=== PATIENT | female | born 1970 | race American Indian/Alaskan Native ===

== ENCOUNTER 2017-01-23 11:35 | Emergency (ER) | payer BC ==
[2017-01-23] MEDS ORDERED: XARELTO PO ONE (18:03)
--- NOTE | 2017-01-23 18:10 | Emergency Department Report ---
ED General Adult HPI - General Chief complaint: Extremity Injury, Lower Stated complaint: LEFT FOOT AND LEG PAIN,SWELLING Time Seen by Provider: 01/23/17 17:58 Source: patient Mode of arrival: Ambulatory Limitations: No Limitations - History of Present Illness Initial comments: Patient is 46 years old female history of left lower extremity DVT in 2012. She presented to the ER today with 7 day history of left lower extremity swelling and pain. She denied any chest pain or shortness of breath. No other symptoms. - Related Data Allergies Allergy/AdvReac Type Severity Reaction Status Date / Time No Known Allergies Allergy Verified 01/23/17 11:42 ED Review of Systems ROS: Stated complaint: LEFT FOOT AND LEG PAIN,SWELLING Other details as noted in HPI Comment: All other systems reviewed and negative Constitutional: denies: chills, fever ENT: denies: throat pain, dental pain Cardiovascular: denies: chest pain, palpitations, dyspnea on exertion Gastrointestinal: denies: abdominal pain, nausea, vomiting, diarrhea, constipation Genitourinary: denies: urgency, dysuria Musculoskeletal: denies: back pain Neurological: denies: headache, weakness, numbness, paresthesias ED Past Medical Hx - Past Medical History Hx Deep Vein Thrombosis: Yes Additional medical history: DVT - Surgical History Hx Cholecystectomy: Yes - Social History Smoking Status: Never Smoker Substance Use Type: None ED Physical Exam - General Limitations: No Limitations General appearance: alert, in no apparent distress - Head Head exam: Present: atraumatic, normocephalic, normal inspection - Eye Eye exam: Present: normal appearance, PERRL - ENT ENT exam: Present: normal exam, mucous membranes moist - Neck Neck exam: Present: normal inspection, full ROM. Absent: tenderness, meningismus - Respiratory Respiratory exam: Present: normal lung sounds bilaterally. Absent: respiratory distress, wheezes, rales, rhonchi, stridor, chest wall tenderness, accessory muscle use, decreased breath sounds, prolonged expiratory - Cardiovascular Cardiovascular Exam: Present: regular rate, normal rhythm, normal heart sounds - GI/Abdominal GI/Abdominal exam: Present: soft, normal bowel sounds. Absent: distended, tenderness, guarding, rebound, rigid, organomegaly, mass, bruit, pulsatile mass , hernia - Extremities Exam Extremities exam: Present: normal inspection, calf tenderness, other (left leg swelling, no erythema, good peripheral pulses.) - Back Exam Back exam: Present: normal inspection. Absent: tenderness, CVA tenderness (R), CVA tenderness (L) - Neurological Exam Neurological exam: Present: alert, oriented X3, CN II-XII intact, normal gait - Skin Skin exam: Present: warm ED Course Vital Signs 01/23/17 01/23/17 01/23/17 11:42 16:33 17:00 Temperature 97.8 F Pulse Rate 88 84 78 Respiratory 20 16 7 L Rate Blood Pressure 140/69 128/92 Blood Pressure 136/76 [Left] O2 Sat by Pulse 98 96 100 Oximetry 01/23/17 01/23/17 01/23/17 17:30 18:01 18:30 Temperature Pulse Rate 77 67 72 Respiratory 10 L 11 L 15 Rate Blood Pressure 117/65 135/76 134/76 Blood Pressure [Left] O2 Sat by Pulse 99 100 100 Oximetry 01/23/17 01/23/17 01/23/17 19:00 19:30 20:01 Temperature Pulse Rate 75 70 69 Respiratory 24 25 H 20 Rate Blood Pressure 126/66 133/82 152/102 Blood Pressure [Left] O2 Sat by Pulse 100 100 100 Oximetry 01/23/17 20:31 Temperature Pulse Rate 70 Respiratory 23 Rate Blood Pressure 158/111 Blood Pressure [Left] O2 Sat by Pulse 98 Oximetry - Reevaluation(s) Reevaluation #1: 01/23/17 18:09 Patient receives Xarelto 20 MG BY MOUTH, I WOULD OBSERVE IN THE ER FOR 2 HOURS AFTER THE MEDICATION, discharged after that to follow-up with her primary care physician I provided with a prescription for Xarelto. Reevaluation #2: 01/23/17 21:10 Patient observed in the ER more than 2 hours after she received xarelto. ED Medical Decision Making - Radiology Data Radiology results: report reviewed LLE VENOUS DUPLEX COMPLETED. VAS LAB PRELIMINARY REPORT; NON-OCCL ACUTE DVT NOTED IN LT. CFV. CHRONIC/ RECANALIZED DVT NOTED IN LT. SFV, POP V . ACUTE SVT NOTED IN LT. SMALLER SAPH VEIN (CALF). PHYSICIANS REPORT TO FOLLOW...(RSK) Critical care attestation.: If time is entered above; I have spent that time in minutes in the direct care of this critically ill patient, excluding procedure time. ED Disposition Clinical Impression: Left leg DVT Disposition: DC-01 TO HOME OR SELFCARE Is pt being admited?: No Condition: Stable Instructions: Deep Venous Thrombosis (ED) Referrals: KRIS LAL MD [Staff Physician] - 3-5 Days
[2017-01-23 21:20] VITALS: BP 129/79
--- NOTE | 2017-01-24 08:02 | Vascular Lab Report ---
Left Lower Extremity Venous Duplex Study: Reason for Exam: Pain of the left lower extremity. Comments on the Right: A limited duplex study was done of the proximal veins of the right lower extremity. All veins visualized are freely compressible without evidence of internal echogenicity. Flow is spontaneous and phasic throughout. No evidence of acute or chronic thrombus is seen in any of the vessels visualized. Comments on the Left: Venous thrombosis is noted in the popliteal femoral and common femoral veins as well as small saphenous vein. The remaining veins visualized are freely compressible without evidence of internal echogenicity. Spontaneous and phasic flow is present proximally. Impression: Deep venous thrombosis in the left lower extremity. Superficial venous thrombosis in the left lower extremity.
== END 2017-01-23 21:20 | disposition home or self-care (01) ==
LOC: ED 11:35
DX: I82.4Z2 Acute embolism and thrombosis of unspecified deep veins of left distal lower extremity (principal)

== ENCOUNTER 2018-12-14 20:05 | Inpatient (IN) | payer BC, OTHER ==
--- NOTE | 2018-12-14 20:13 | Event Note ---
ED Screening Note ED Screening Note: SOB that began at 12 PM no CP no cough no fever no LE edema PMHx DVT/PE last one was in 2017 no IVC filter only low dose aspirin no recent travel, no recent surgery, no control, no hormones This initial assessment/diagnostic orders/clinical plan/treatment(s) is/are subject to change based on patients health status, clinical progression and re- assessment by fellow clinical providers in the ED. Further treatment and workup at subsequent clinical providers discretion. Patient/guardian urged not to elope from the ED as their condition may be serious if not clinically assessed and managed. Initial orders include: labs
[2018-12-14 21:06] LABS: Basophils # (Auto) 0.1 K/mm3 (0.0-0.1); Eosinophils % (Auto) 0.3 % (0.0-4.3); Hematocrit 36.4 % (30.3-42.9); Hemoglobin 11.5 gm/dl (10.1-14.3); Lymphocytes # (Auto) 1.6 K/mm3 (1.2-5.4); Lymphocytes % (Auto) 26.1 % (13.4-35.0); Mean Corpuscular HGB Conc 32 % (30-34); Mean Corpuscular Volume 78 fl (79-97); Monocytes # (Auto) 0.5 K/mm3 (0.0-0.8); Monocytes % (Auto) 8.2 % (0.0-7.3); Platelet Count 155 K/mm3 (140-440); Red Blood Count 4.67 M/mm3 (3.65-5.03); Red Cell Distribution Width 17.3 % (13.2-15.2)
[2018-12-14 21:18] LABS: INR 0.98 (0.87-1.13)
[2018-12-14 21:19] LABS: Partial Thromboplastin Time 27.2 Sec. (24.2-36.6)
[2018-12-14 21:24] LABS: Alanine Aminotransferase 16 units/L (7-56); Albumin 4.4 g/dL (3.9-5); BUN/Creatinine Ratio 16; Blood Urea Nitrogen 11 mg/dL (7-17); Hemolysis Index 8
[2018-12-14] MEDS ORDERED: HEPARIN 10,000 UNITS/10 ML VIAL IV ONE (22:17)
--- NOTE | 2018-12-14 22:27 | Emergency Department Report ---
ED Shortness of Breath HPI - General Chief Complaint: Dyspnea/Respdistress Stated Complaint: SOB Time Seen by Provider: 12/14/18 20:11 Source: patient Mode of arrival: Ambulatory Limitations: No Limitations - History of Present Illness Initial Comments: Patient is 48-year-old female with history of DVT and pulmonary embolism in 2017. Patient presented to the ER complaining of sudden onset of shortness of breath started this afternoon. Patient stated that she was going to get her male when all of a sudden she started having shortness of breath and chest pain, tightness with palpitation. Patient stated that she was taking Xorelto but because of insurance issues she is unable to buy her medication and she is only taking any aspirin. Patient denied any fever or chills. No cough. MD Complaint: shortness of breath -: Sudden Consistency: constant - Related Data Previous Rx's Medication Instructions Recorded Last Taken Type Apixaban [Eliquis] 5 mg PO BID 30 Days tablet 12/17/18 Unknown Rx HYDROcodone/APAP 5-325 [[place] 2 each PO Q6H PRN #14 tablet 12/17/18 Unknown Rx 5-325 mg TAB] Allergies Allergy/AdvReac Type Severity Reaction Status Date / Time No Known Allergies Allergy Verified 01/23/17 11:42 ED Review of Systems ROS: Stated complaint: SOB Other details as noted in HPI Comment: All other systems reviewed and negative Constitutional: denies: chills, fever Respiratory: shortness of breath, SOB with exertion, SOB at rest. denies: cough, wheezing Cardiovascular: chest pain, palpitations, dyspnea on exertion Gastrointestinal: denies: abdominal pain, nausea, vomiting Musculoskeletal: denies: back pain Neurological: denies: headache, weakness ED Past Medical Hx - Past Medical History Hx Deep Vein Thrombosis: Yes Hx Pulmonary Embolism: Yes (x1) Additional medical history: DVT x4 - Surgical History Hx Cholecystectomy: Yes - Social History Smoking Status: Never Smoker Substance Use Type: None - Medications Home Medications: Home Medications Medication Instructions Recorded Confirmed Last Taken Type Apixaban [Eliquis] 5 mg PO BID 30 Days tablet 12/17/18 Unknown Rx HYDROcodone/APAP 5-325 [[place] 2 each PO Q6H PRN #14 tablet 12/17/18 Unknown Rx 5-325 mg TAB] ED Physical Exam - General Limitations: No Limitations General appearance: alert, in no apparent distress, anxious - Head Head exam: Present: atraumatic, normocephalic, normal inspection - Eye Eye exam: Present: normal appearance - ENT ENT exam: Present: normal exam, normal orophraynx, mucous membranes moist - Neck Neck exam: Present: normal inspection, full ROM. Absent: tenderness, meningismus, lymphadenopathy, thyromegaly - Respiratory Respiratory exam: Present: normal lung sounds bilaterally - Cardiovascular Cardiovascular Exam: Present: regular rate, tachycardia, normal heart sounds - GI/Abdominal GI/Abdominal exam: Present: soft, normal bowel sounds. Absent: distended, tenderness, guarding, rebound, rigid, organomegaly, mass, bruit, pulsatile mass, hernia - Extremities Exam Extremities exam: Present: normal inspection, full ROM, normal capillary refill. Absent: calf tenderness - Back Exam Back exam: Present: normal inspection, full ROM. Absent: CVA tenderness (R), CVA tenderness (L) - Neurological Exam Neurological exam: Present: alert, oriented X3, CN II-XII intact - Skin Skin exam: Present: warm, intact, normal color ED Course Vital Signs 12/14/18 12/14/18 12/14/18 20:09 20:10 20:12 Temperature 98.3 F 98.3 F 98.3 F Pulse Rate 128 H 128 H 96 H Respiratory 18 20 18 Rate Blood Pressure 146/108 146/108 Blood Pressure 146/108 [Right] O2 Sat by Pulse 96 96 128 H Oximetry 12/14/18 12/14/18 12/14/18 21:51 21:59 22:10 Temperature 98.5 F Pulse Rate 115 H 119 H Respiratory 21 16 Rate Blood Pressure 129/90 Blood Pressure 129/90 [Right] O2 Sat by Pulse 94 98 88 Oximetry 12/14/18 12/14/18 12/14/18 22:16 22:30 22:46 Temperature Pulse Rate 114 H 116 H 115 H Respiratory 27 H 34 H 33 H Rate Blood Pressure 106/85 129/90 129/90 Blood Pressure [Right] O2 Sat by Pulse 96 96 99 Oximetry 12/14/18 12/14/18 12/14/18 23:00 23:16 23:30 Temperature Pulse Rate 115 H 111 H 110 H Respiratory 35 H 33 H 32 H Rate Blood Pressure 111/68 111/68 111/68 Blood Pressure [Right] O2 Sat by Pulse 58 L 98 95 Oximetry 12/14/18 12/14/18 23:38 23:40 Temperature Pulse Rate 109 H 112 H Respiratory 22 32 H Rate Blood Pressure 111/68 111/68 Blood Pressure [Right] O2 Sat by Pulse 98 97 Oximetry ED Medical Decision Making - Lab Data Result diagrams: 12/17/18 04:08 12/17/18 04:08 - Radiology Data Radiology results: report reviewed - Medical Decision Making Patient is 48-year-old female with history of DVT and pulmonary embolism in 2017. Patient presented to the ER complaining of sudden onset of shortness of breath started this afternoon. Patient stated that she was going to get her male when all of a sudden she started having shortness of breath and chest pain, tightness with palpitation. Patient stated that she was taking Xorelto but because of insurance issues she is unable to buy her medication and she is only taking any aspirin. Patient denied any fever or chills. No cough. Given patient had a previous history of DVT and pulmonary embolism and I can't presentation which is consistent stent with pulmonary embolism. Patient started on heparin drip. CTA chest show a large right main pulmonary artery embolism. I discussed the patient with Dr. Arnie Canales, vascular surgeon for [facility]. Dr. Canales is taking patient to the Emergency Room Rn for thrombectomy. I discussed the patient was Dr. Santiago, he agreed to admit the patient to medical service for further management. Critical Care Time: Yes Critical care time in (mins) excluding proc time.: 30 Critical care attestation.: If time is entered above; I have spent that time in minutes in the direct care of this critically ill patient, excluding procedure time. ED Disposition Clinical Impression: Pulmonary embolism Disposition: DC-09 OP ADMIT IP TO THIS HOSP Is pt being admited?: Yes Condition: Stable
--- NOTE | 2018-12-14 22:56 | Cat Scan Report ---
CTA CHEST WITH IV CONTRAST INDICATION: SOB, elevated d-dimer, hx of PE CONTRAST: 100 cc Omnipaque 350 IV COMPARISON: None available. Three-plane MIP reconstructions were produced. All CT scans at this location are performed using CT d ose reduction for ALARA by means of automated exposure control. NOTE: Resolution is decreased and artifact is introduced by the patient's size. FINDINGS: Lung brown are clear. No significant axillary or chest wall abnormalities are seen. No med iastinal or hilar masses are noted. Visualized portions of the upper abdomen show no acute abnormalit ies. Fatty infiltration of the liver is seen. The aorta shows no aneurysmal dilatation or evidence of dissection. Good opacification of the pulmonary arterial system was achieved. A large PTE is seen in the distal r ight pulmonary artery extending into multiple mid level branches with extensive PTE noted in the righ t lower lobe as an extension of this process and small amounts extending into the right upper and mid dle lobe mid level branches. No PTE is obvious on the left. The right ventricle is mildly prominent as is the inferior vena cava. Mild reflux of contrast into th e hepatic veins is seen. IMPRESSION: Large right-sided PTE with evidence of right heart strain CRITICAL RESULT: Time of Discovery: 2144 Time of Communication: 2148 Licensed Practitioner Receiving Report: Dr. Reynolds Read Back Performed: not pertinent Signer Name: Lake Rogers MD Signed: 12/14/2018 10:51 PM Workstation Name: [id number]
[2018-12-14] MEDS ORDERED: HEPARIN/ 0.45% NACL DRIP 25,000 UNIT/500 ML BAG IV SCH (23:00)
[2018-12-14 23:34] LABS: Hematocrit 36.3 % (30.3-42.9); Hemoglobin 11.3 gm/dl (10.1-14.3)
[2018-12-14 23:40] LABS: INR TNR (0.87-1.13); Partial Thromboplastin Time TNR Sec. (24.2-36.6)
[2018-12-14] MEDS ORDERED: MIDAZOLAM 2 MG/2 ML INJ ONE (23:40)
[2018-12-14] MEDS ORDERED: fentaNYL 100 MCG/2 ML INJ ONE (23:41)
[2018-12-14] MEDS ORDERED: SODIUM CHLORIDE 0.9% 1000 ML 1,000 ML ONE (23:43)
[2018-12-14] MEDS ORDERED: LIDOCAINE (2%) 20 MG/1 ML VIAL 20 ML MDV INFILTRATI ONE (23:43)
[2018-12-14] MEDS ORDERED: HEPARIN/NS 5000 UNIT/500ML 1,000 ML IR ONE (23:43)
[2018-12-14] MEDS ORDERED: WATER FOR INJ Sterile (PF) 10 ML ONE (23:43)
[2018-12-14] MEDS ORDERED: HEPARIN 10,000 UNITS/10 ML VIAL ONE (23:43)
[2018-12-14] MEDS ORDERED: HEPARIN/ 0.45% NACL DRIP 25,000 UNIT/500 ML BAG ONE (23:43)
[2018-12-14] MEDS ORDERED: MORPHINE 2 MG/1 ML INJ IV PRN (23:44)
[2018-12-14] MEDS ORDERED: ALTEPLASE 2 MG INJ ONE (23:44)
[2018-12-14] MEDS ORDERED: ONDANSETRON 4 MG/2 ML INJ IV PRN (23:44)
[2018-12-14] MEDS ORDERED: ACETAMINOPHEN 650 MG RECT SUPP PR PRN (23:45)
[2018-12-15] MEDS ORDERED: ONDANSETRON 4 MG/2 ML INJ IV PRN
[2018-12-15] MEDS ORDERED: MORPHINE 2 MG/1 ML INJ IV PRN
[2018-12-15] MEDS ORDERED: ALTEPLASE 20 MG in SODIUM CHLORIDE 0.9% 500 ML 500 ML EKOSDLUMEN SCH
[2018-12-15] MEDS ORDERED: SODIUM CHLORIDE 0.9% 1000 ML 1,000 ML SHEATH SCH
[2018-12-15] MEDS ORDERED: MORPHINE 4 MG/1 ML INJ IV PRN
[2018-12-15] MEDS ORDERED: SODIUM CHLORIDE 0.9% 1000 ML 1,000 ML IV SCH
[2018-12-15] MEDS ORDERED: HEPARIN/ 0.45% NACL DRIP 25,000 UNIT/500 ML BAG SHEATH SCH
[2018-12-15] MEDS ORDERED: SODIUM CHLORIDE 0.9% 1000 ML 1,000 ML EKOSCLUMEN SCH
[2018-12-15] MEDS ORDERED: HYDROcodone/ACETAMINOPHEN 5-325 MG TAB PO PRN
[2018-12-15 00:36] LABS: INR 1.13 (0.87-1.13)
[2018-12-15] MEDS ORDERED: HEPARIN 10,000 UNITS/10 ML VIAL ONE ×2 (00:36→12:18)
--- NOTE | 2018-12-15 00:41 | Consultation ---
History of Present Illness - Reason for Consult Consult date: 12/15/18 - History of Present Illness Patient with a history of multiple prior DVT for which she had been placed on Eliquis. Patient discontinued her Eliquis secondary to insurance purposes and was taking 81 mg of aspirin/day. She developed shortness of breath and presented to the emergency department where she was found to have a sub-massive pulmonary embolism with right-sided heart strain. Her right main pulmonary artery is completely occluded with pulmonary embolus. The patient is tachynpic and tachycardic requiring oxygen to maintain saturations in the mid 90s. Past History Past Medical History: DVT Medications and Allergies Allergies Allergy/AdvReac Type Severity Reaction Status Date / Time No Known Allergies Allergy Verified 01/23/17 11:42 Home Medications Medication Instructions Recorded Confirmed Last Taken Type Rivaroxaban [Xarelto] 20 mg PO QDAY #30 tab 01/23/17 Unknown Rx Active Meds: Active Medications Acetaminophen (Tylenol) 650 mg AR Q4H PRN PRN Reason: Fever >101 Acetaminophen/Hydrocodone Bitart ([place] 5/325) 2 each PO Q6H PRN PRN Reason: Pain, Moderate (4-6) Heparin Sodium/Sodium Chloride (Heparin/ 0.45% Nacl-25,000 Unit/500 Ml) 25,000 unit in 500 mls @ 30 mls/hr IV TITR PEDRO; Protocol Last Admin: 12/14/18 22:33 Dose: 1,500 units/hr, 30 mls/hr Documented by: Sodium Chloride (Nacl 0.9% 1000 Ml) 1,000 mls @ 30 mls/hr IV DIRECT PEDRO Alteplase, Recombinant 20 mg/ (Sodium Chloride) 500 mls @ 25 mls/hr EKOSDLUMEN DIRECT PEDRO Sodium Chloride (Nacl 0.9% 1000 Ml) 1,000 mls @ 30 mls/hr SHEATH DIRECT PEDRO Sodium Chloride (Nacl 0.9% 1000 Ml) 1,000 mls @ 35 mls/hr EKOSCLUMEN DIRECT PEDRO Heparin Sodium/Sodium Chloride (Heparin/ 0.45% Nacl-25,000 Unit/500 Ml) 25,000 unit in 500 mls @ 10 mls/hr SHEATH DIRECT PEDRO; Protocol Morphine Sulfate (Morphine) 4 mg IV Q4H PRN PRN Reason: Pain , Severe (7-10) Morphine Sulfate (Morphine) 2 mg IV Q4H PRN PRN Reason: Pain, Moderate (4-6) Ondansetron HCl (Zofran) 4 mg IV Q8H PRN PRN Reason: Nausea And Vomiting Review of Systems All systems: negative Exam - Constitutional Vitals: Temp Pulse Resp BP Pulse Ox 98.5 F 110 H 32 H 111/68 95 12/14/18 21:59 12/14/18 23:30 12/14/18 23:30 12/14/18 23:30 12/14/18 23:30 General appearance: Present: no acute distress, obese - EENT Eyes: Present: EOM intact ENT: hearing intact - Neck Neck: Present: supple, normal ROM - Respiratory Respiratory effort: normal - Cardiovascular Rhythm: other (tachycardic) - Extremities Extremities: no ischemia Extremity abnormal: edema - Abdominal General gastrointestinal: Present: deferred Female genitourinary: Present: deferred - Rectal Rectal Exam: deferred - Psychiatric Psychiatric: appropriate mood/affect, cooperative Results - Labs CBC & Chem 7: 12/14/18 22:31 12/14/18 20:37 Labs: Abnormal lab results 12/14/18 12/14/18 12/14/18 Range/Units 20:37 20:37 20:37 MCV 78 L (79-97) fl MCH 25 L (28-32) pg RDW 17.3 H (13.2-15.2) % [place] % (Auto) 8.2 H (0.0-7.3) % D-Dimer 3833.94 H (0-234) ng/mlDDU Chloride 108.5 H (98-107) mmol/L Carbon Dioxide 20 L (22-30) mmol/L Calcium 11.0 H (8.4-10.2) mg/dL - Imaging and Cardiology CT scan - chest: image reviewed Assessment and Plan Patient with a history of sub-massive pulmonary embolism. Patient will be taken to the [facility] for placement of right-sided thrombolytics catheter. She will need to be maintained on lifelong anticoagulation. Additionally, the patient will need evaluation of her pelvic veins to determine if there is an underlying anatomic etiology for her recurrent DVT.
--- NOTE | 2018-12-15 00:45 | Operative Report ---
Operative Report Operative Report: Exam: Placement of EKOS lytics catheter, pulmonary angiography Clinical indication: This was sub-massive pulmonary embolism Date: 12/15/2018 Procedure: Following an explanation of the risks, benefits and alternatives; written informed consent was obtained. The patient was brought to the angiographic suite and placed in supine position on the examination table. Initial ultrasound evaluation of her leg demonstrated a patent right common femoral vein. The patient's leg was prepped and draped in the usual sterile fashion. 1% lidocaine was used for anesthesia. Under ultrasound guidance, the right common femoral vein was cannulated with a 7 cm 18-gauge needle. A 0.035 guidewire was advanced centrally. The needle was removed and a 6 Irish sheath placed. A JR4 catheter was advanced over the guidewire. The guidewire and catheter were advanced to the right atrium. The guidewire was exchange. Glidewire and together the guidewire and JR4 catheter advanced through the right atrium, right ventricle and pulmonary outflow tract. The JR4 catheter would not advance past the occluding thrombus in the main pulmonary artery. Vertebral catheter was therefore advanced over the guidewire. The vertebral catheter was then manipulated into a right lower lobe pulmonary artery. The guidewire was removed and angiography was performed to demonstrate appropriate positioning within the pulmonary arterial system. The guidewire was reinserted. A 12 cm infusion length 106 cm total length EKOS catheter was then advanced over the guidewire to extend from the right lower lobe to the right main pulmonary artery. The guidewire was removed and the infusion wire placed through the catheter. Imaging was obtained to document appropriate positioning. The sheath was securely fastened skin surface using 0 silk suture. The catheter was then securely fastened to the sheath using 0 silk suture. Sterile dressings were applied. The catheter was primed with TPA initially primed with heparin. A sterile dressing was then applied. The patient tolerated the procedure well. There were no immediate post procedure competitions. Minimal sedation was utilized secondary to patient's tenuous respiratory status. Continuous cardiopulmonary monitoring was utilized. Impression: 1) Placement of an EKOS catheter extending from the right lower lobe the right main pulmonary artery. 2) Pulmonary angiography for anatomic localization.
[2018-12-15 00:53] LABS: Hematocrit 32.2 % (30.3-42.9); Hemoglobin 10.6 gm/dl (10.1-14.3); Mean Corpuscular HGB Conc 33 % (30-34); Mean Corpuscular Volume 77 fl (79-97); Platelet Count 125 K/mm3 (140-440); Red Blood Count 4.19 M/mm3 (3.65-5.03); Red Cell Distribution Width 17.2 % (13.2-15.2)
[2018-12-15 00:53] LABS: Partial Thromboplastin Time 144.8 Sec. (24.2-36.6)
[2018-12-15 00:54] LABS: Basophils # (Auto) 1.1 K/mm3 (0.0-0.1); Basophils % (Auto) 1.1 % (0.0-1.8); Eosinophils # (Auto) 0.4 K/mm3 (0.0-0.4); Eosinophils % (Auto) 0.4 % (0.0-4.3); Lymphocytes # (Auto) 1.8 K/mm3 (1.2-5.4); Lymphocytes % (Auto) 27.3 % (13.4-35.0); Mean Platelet Volume 8.3 fl (6-12); Monocytes # (Auto) 7.6 K/mm3 (0.0-0.8); Monocytes % (Auto) 7.6 % (0.0-7.3)
[2018-12-15 01:07] LABS: BUN/Creatinine Ratio 14; Blood Urea Nitrogen 10 mg/dL (7-17); Calcium 10.6 mg/dL (8.4-10.2); Hemolysis Index 19
[2018-12-15] MEDS: diphenhydrAMINE 50 MG/ML VIAL IV PRN (03:01)
[2018-12-15 05:09] LABS: Basophils % (Auto) 0.4 % (0.0-1.8); Eosinophils % (Auto) 0.1 % (0.0-4.3); Hematocrit 32.3 % (30.3-42.9); Hemoglobin 10.2 gm/dl (10.1-14.3); Lymphocytes # (Auto) 1.2 K/mm3 (1.2-5.4); Lymphocytes % (Auto) 20.4 % (13.4-35.0); Mean Corpuscular HGB Conc 32 % (30-34); Mean Corpuscular Volume 78 fl (79-97); Monocytes # (Auto) 0.4 K/mm3 (0.0-0.8); Monocytes % (Auto) 7.8 % (0.0-7.3); Platelet Count 121 K/mm3 (140-440); Red Blood Count 4.15 M/mm3 (3.65-5.03); Red Cell Distribution Width 17.2 % (13.2-15.2)
--- NOTE | 2018-12-15 05:59 | History and Physical Report ---
CHIEF COMPLAINT: Dyspnea. HISTORY OF PRESENT ILLNESS: The patient is a 48-year-old female who said she suddenly started having shortness of breath within the last 12-24 hours prior to presentation. There was no history of cough, no history of fever or chills there was no history of diaphoresis; however, there was history of chest pain that appears as tightness, and non radiating and was relieved with pain medication in the chest and also history of palpitations. The patient presented for evaluation. PAST MEDICAL HISTORY: Pertinent for multiple deep vein thrombosis and also pertinent for pulmonary embolism, for which she was supposed to be on Xarelto, but says she could not afford it and instead was taking aspirin. PAST SURGICAL HISTORY: Pertinent for cholecystectomy. FAMILY HISTORY: Noncontributory. SOCIAL HISTORY: The patient does not smoke, does not drink alcohol and does not use illicit drugs. MEDICATIONS: The patient is on aspirin, dose, frequency unknown. The patient was supposed to be taking Xarelto, but said she did not even start it because she could not afford it. ALLERGIES: There are no known drug allergies. REVIEW OF SYSTEMS: CONSTITUTIONAL: There is no fever, no chills, no diaphoresis. HEENT: There is no headache or sore throat. CARDIOVASCULAR SYSTEM: Chest pain is present. No orthopnea. RESPIRATORY SYSTEM: Shortness of breath is present and there is no cough. GASTROINTESTINAL SYSTEM: There is no nausea, no vomiting, no abdominal pain, diarrhea or constipation. NEUROLOGICAL SYSTEM: There is no numbness, no dizziness, no altered mental status. MUSCULOSKELETAL SYSTEM: There is no joint pain or pain in the lower extremity and there is no joint swelling. DERMATOLOGICAL SYSTEM: There is no skin rash or itching. GENITOURINARY SYSTEM: There is no dysuria, hematuria, or flank pain. Rest of system review is normal. PHYSICAL EXAMINATION: GENERAL: At the time of exam, the patient was found to be alert, oriented x 3 and not in acute distress. VITAL SIGNS: At the initial time of presentation showed temperature of 98.3 degrees Fahrenheit, pulse of 128, respirations 20, blood pressure 146/108, O2 sat of 96% on room air. HEENT: Showed pupils to be equal, round, reactive to light and accommodating. Extraocular muscles are intact. NECK: Supple with no JVD or carotid bruit. CARDIOVASCULAR SYSTEM: Showed normal first and second heart sounds with no gallops or murmurs. RESPIRATORY SYSTEM: Showed reduced air entry on the right lung field area with no abnormal breath sounds. GASTROINTESTINAL SYSTEM: Show abdomen to be full, soft, nontender with no organomegaly or rigidity. NEUROLOGIC: Shows no focal deficit. MUSCULOSKELETAL SYSTEM: Show no joint swelling or tenderness. DERMATOLOGICAL SYSTEM: Showed no skin rash. GENITOURINARY SYSTEM: Showing no costovertebral angle tenderness. PERTINENT LABORATORY AND IMAGING STUDIES: The patient had CT angiogram of the chest done that shows large right-sided pulmonary embolism with evidence of right heart strain. Lab results, the patient has CBC done that shows normal white count, normal hemoglobin and normal hematocrit with CBC differential showing elevated monocyte count of 8.2%. The patient's coagulation studies show high D-dimer level of 3833 that prompted the order for CT angiogram of the chest. The patient's chemistry showed normal sodium, normal potassium, with high chloride level of 108.5 and low CO2 of 20. The patient's calcium level was high with a value of 11 and rest of chemistry was unremarkable. The patient's test was negative. DIAGNOSES: Right large pulmonary embolism with right ventricular strain. PLAN OF CARE: 1. The patient will be admitted to telemetry. 2. The patient will continue vascular surgical consult with Dr. Canales who was already notified by the Emergency Room and plan to do a cardiac catheterization for the management of the pulmonary embolism. 3. The patient will be on IV morphine 2 mg every 3 hours as needed for pain and IV Zofran 4 mg every 8 hours as needed for nausea and vomiting. 4. The patient will be on oxygen by nasal cannula 2 liters per minute. 5. The patient will remain n.p.o. until seen by the vascular surgeon. 6. The patient will be on Tylenol 650 mg rectally every 4 hours for fever and headache. 7. The patient will continue i.v heparin started in the ED until reviewed by the vascular surgeon. JOB# [id number] OCN/NTS MTDD
--- NOTE | 2018-12-15 07:54 | Progress Note ---
Assessment and Plan Assessment and plan: Patient is a 48 yo woman with a history DVT/PE off Xarelto because of cost who presents with SOB * CTA chest IMPRESSION: Large right-sided PTE with evidence of right heart strain * Left Venous US Doppler Impression: Deep venous thrombosis in the left lower extremity. Superficial venous thrombosis in the left lower extremity. Acute large pulmonary embolism: treat with A/C Acute LLE DVT: treat with A/C Acute diastolic heart failure/Cor pulmonale: Vascular surgery/IR consulted, for EKOS Noncompliance with A/C: dianetic counselor on compliance h/o DVT/PE Morbid obesity, bmi 45.2, lifestyle modification stressed DVT ppx: heparin iv drip plt count dropping: monitor CBC closely full code History Interval history: Patient was seen and examined. Follow-up on current diagnosis of Massive PE. No overnight events reported to me. Patient denies any chest pain, shortness breath, nausea/vomiting or severe headaches. Imaging, nursing note, chart, labs and old chart reviewed. Discussed with patient. Hospitalist Physical - Physical exam Narrative exam: Gen: WDWN, NAD, Awake, Alert, Orientated HEENT: NCAT, EOMI, PERRL, OP Clear Neck: supple, no adenopathy, no thyromegaly, no JVD CVS/Heart: RRR, normal S1S2, pulses present bilaterally Chest/Lungs: CTA B, Symmetrical chest expansion, good air entry bilaterally GI/Abdomen: soft, NTND, good bowel sounds, no guarding or rebound /Bladder: no suprapubic tenderness, no CVA or paraspinal tenderness Extermity/Skin: no c/c/e, no obvious rash MSK: FROM x 4 Neuro: CN 2-12 grossly intact, no new focal deficits Psych: calm - Constitutional Vitals: Temp Pulse Resp BP Pulse Ox 98.2 F 112 H 26 H 111/68 92 12/15/18 04:00 12/14/18 23:40 12/15/18 04:00 12/14/18 23:40 12/15/18 04:00 General appearance: Present: no acute distress, obese Results - Labs CBC & Chem 7: 12/15/18 04:41 12/15/18 00:35 Labs: Laboratory Last Values WBC 5.7 K/mm3 (4.5-11.0) 12/15/18 04:41 RBC 4.15 M/mm3 (3.65-5.03) 12/15/18 04:41 Hgb 10.2 gm/dl (10.1-14.3) 12/15/18 04:41 Hct 32.3 % (30.3-42.9) 12/15/18 04:41 MCV 78 fl (79-97) L 12/15/18 04:41 MCH 25 pg (28-32) L 12/15/18 04:41 MCHC 32 % (30-34) 12/15/18 04:41 RDW 17.2 % (13.2-15.2) H 12/15/18 04:41 Plt Count 121 K/mm3 (140-440) L 12/15/18 04:41 Lymph % (Auto) 20.4 % (13.4-35.0) 12/15/18 04:41 [place] % (Auto) 7.8 % (0.0-7.3) H 12/15/18 04:41 Eos % (Auto) 0.1 % (0.0-4.3) 12/15/18 04:41 Baso % (Auto) 0.4 % (0.0-1.8) 12/15/18 04:41 Lymph # 1.2 K/mm3 (1.2-5.4) 12/15/18 04:41 [place] # 0.4 K/mm3 (0.0-0.8) 12/15/18 04:41 Eos # 0.0 K/mm3 (0.0-0.4) 12/15/18 04:41 Baso # 0.0 K/mm3 (0.0-0.1) 12/15/18 04:41 Add Manual Diff Complete 12/15/18 00:35 Seg Neutrophils % 71.3 % (40.0-70.0) H 12/15/18 04:41 Seg Neutrophils # 4.1 K/mm3 (1.8-7.7) 12/15/18 04:41 PT 14.4 Sec. (12.2-14.9) 12/15/18 00:14 INR 1.13 (0.87-1.13) 12/15/18 00:14 APTT 144.8 Sec. (24.2-36.6) H* 12/15/18 00:14 Fibrinogen 276 mg/dl (211-480) 12/15/18 04:41 D-Dimer 3833.94 ng/mlDDU (0-234) H 12/14/18 20:37 Heparin Anti-Xa Level 0.58 U.I./ml (0.3-0.7) 12/15/18 04:41 Sodium 140 mmol/L (137-145) 12/15/18 00:35 Potassium 4.2 mmol/L (3.6-5.0) 12/15/18 00:35 Chloride 108.6 mmol/L (98-107) H 12/15/18 00:35 Carbon Dioxide 21 mmol/L (22-30) L 12/15/18 00:35 Anion Gap 15 mmol/L 12/15/18 00:35 BUN 10 mg/dL (7-17) 12/15/18 00:35 Creatinine 0.7 mg/dL (0.7-1.2) 12/15/18 00:35 Estimated GFR > 60 ml/min 12/15/18 00:35 BUN/Creatinine Ratio 14 % 12/15/18 00:35 Glucose 115 mg/dL (65-100) H 12/15/18 00:35 Calcium 10.6 mg/dL (8.4-10.2) H 12/15/18 00:35 Total Bilirubin 0.20 mg/dL (0.1-1.2) 12/14/18 20:37 AST 14 units/L (5-40) 12/14/18 20:37 ALT 16 units/L (7-56) 12/14/18 20:37 Alkaline Phosphatase 85 units/L (35-129) 12/14/18 20:37 Troponin T < 0.010 ng/mL (0.00-0.029) 12/14/18 20:37 NT-Pro-B Natriuret Pep 167.0 pg/mL (0-450) 12/14/18 20:37 Total Protein 7.5 g/dL (6.3-8.2) 12/14/18 20:37 Albumin 4.4 g/dL (3.9-5) 12/14/18 20:37 Albumin/Globulin Ratio 1.4 % 12/14/18 20:37 HCG, Qual Negative (Negative) 12/14/18 20:37 Active Medications - Current Medications Current Medications: Generic Name Dose Route Start Last Admin Trade Name Freq PRN Reason Stop Dose Admin Acetaminophen 650 mg 12/14/18 23:45 Tylenol GA Q4H PRN Fever >101 Acetaminophen/Hydrocodone Bitart 2 each 12/15/18 00:00 [place] 5/325 PO Q6H PRN Pain, Moderate (4-6) Diphenhydramine HCl 25 mg 12/15/18 02:37 12/15/18 03:01 Benadryl IV 25 mg QHS PRN Administration sleep Heparin Sodium/Sodium Chloride 25,000 unit in 500 mls @ 30 mls/hr 12/14/18 23:00 12/14/18 22:33 Heparin/ 0.45% Nacl-25,000 Unit/500 Ml IV 1,500 units/hr TITR PEDRO 30 mls/hr Administration Protocol 1,500 UNITS/HR Sodium Chloride 1,000 mls @ 30 mls/hr 12/15/18 00:00 Nacl 0.9% 1000 Ml IV DIRECT PEDRO Alteplase, Recombinant 20 mg/ 500 mls @ 25 mls/hr 12/15/18 00:00 12/15/18 01:25 Sodium Chloride EKOSDLUMEN 25 mls DIRECT PEDRO Administration Sodium Chloride 1,000 mls @ 30 mls/hr 12/15/18 00:00 Nacl 0.9% 1000 Ml SHEATH DIRECT PEDOR Sodium Chloride 1,000 mls @ 35 mls/hr 12/15/18 00:00 12/15/18 01:25 Nacl 0.9% 1000 Ml EKOSCLUMEN 35 mls DIRECT PEDRO Administration Heparin Sodium/Sodium Chloride 25,000 unit in 500 mls @ 10 mls/hr 12/15/18 00:00 12/15/18 01:25 Heparin/ 0.45% Nacl-25,000 Unit/500 Ml SHEATH 10 mls DIRECT PEDRO Administration Protocol 500 UNITS/HR Morphine Sulfate 4 mg 12/15/18 00:00 Morphine IV Q4H PRN Pain , Severe (7-10) Morphine Sulfate 2 mg 12/15/18 00:00 Morphine IV Q4H PRN Pain, Moderate (4-6) Ondansetron HCl 4 mg 12/15/18 00:00 Zofran IV Q8H PRN Nausea And Vomiting
[2018-12-15 11:46] LABS: Basophils % (Auto) 0.5 % (0.0-1.8); Eosinophils % (Auto) 0.1 % (0.0-4.3); Hematocrit 30.6 % (30.3-42.9); Hemoglobin 9.9 gm/dl (10.1-14.3); Lymphocytes # (Auto) 1.3 K/mm3 (1.2-5.4); Mean Corpuscular HGB Conc 32 % (30-34); Mean Corpuscular Volume 77 fl (79-97); Monocytes # (Auto) 0.4 K/mm3 (0.0-0.8); Monocytes % (Auto) 6.4 % (0.0-7.3); Platelet Count 120 K/mm3 (140-440); Red Cell Distribution Width 17.2 % (13.2-15.2)
[2018-12-15] MEDS ORDERED: fentaNYL 100 MCG/2 ML INJ ONE (11:47)
[2018-12-15] MEDS ORDERED: HEPARIN/NS 5000 UNIT/500ML 500 ML IR ONE (11:47)
[2018-12-15] MEDS ORDERED: MIDAZOLAM 2 MG/2 ML INJ ONE (11:47)
[2018-12-15] MEDS ORDERED: LIDOCAINE 1%/EPINEPHRINE 1:100,000 VIAL (20 ML) INFILTRATI ONE (11:48)
[2018-12-15 12:00] LABS: Fibrinogen 254 mg/dl (211-480)
[2018-12-15] MEDS ORDERED: SODIUM CHLORIDE 0.9% 500 ML 500 ML ONE (12:02)
[2018-12-15] MEDS ORDERED: ceFAZolin/Water 2 GM/20 ML 2 GM/20 ML SYRINGE IV ONE (12:07)
[2018-12-15] MEDS: HEPARIN/ 0.45% NACL DRIP 25,000 UNIT/500 ML BAG IV SCH (12:50)
--- NOTE | 2018-12-15 12:54 | Operative Report ---
Operative Report Operative Report: EXAM: 1. Thrombolytic catheter removal of the right pulmonary artery 2. Right main pulmonary angiogram 3. Right interlobar pulmonary angiogram 4. Venography of the right lower extremity DATE: 12/15/18 RING MAKING MACHINE OPERATOR: AYSE GRIFFIN MD INDICATION: Submassive pulmonary embolism status post thrombolytic therapy MEDICATIONS: Please see nursing report for full details. DEVICES: None CONTRAST: Please see lab technologist report for full details PROCEDURE: The risks, benefits, and alternatives were discussed with the patient and her ; written informed consent was obtained. The patient was brought to the angiography suite in the supine position and transferred onto the angiography table in the supine position. The right groin sheath was prepped and draped in sterile fashion. Fluoroscopy was used to identify the thrombolytic catheter in the right main pulmonary artery which was in appropriate position. The wire was removed in exchange for a [place] wire. Thrombolytic catheter was removed in exchange for a pigtail catheter. Pigtail catheter was used to select the right main pulmonary artery and power injection was performed. Pigtail catheter was used to select the right interlobar pulmonary artery and power injection was performed. Subtraction angiography demonstrated that there was residual thrombus in the interlobar portion of the pulmonary artery which was nonocclusive with resolution of most of the thrombus in the right main pulmonary artery. There were some segmental thrombus noted. The Catheter was removed over wire. Sheath was aspirated, but there was difficulty aspirating the sheath and therefore the sheath was partially retracted. Digital subtraction angiography was performed demonstrating patency of the right external iliac vein, but a tiny dissection associated from the sheath in the right common femoral vein which should resolve with anticoagulation. This is possibly from patient movement during the night. Patient tolerated the procedure well. No immediate postprocedural complications. Patient's sheath was then removed and pressure was held until hemostasis was achieved. She was transferred back to the intensive care unit. FINDINGS: See procedure note above. IMPRESSION: 1. Successful thrombolytic catheter removal and angiography as described above.
--- NOTE | 2018-12-15 13:04 | Event Note ---
Date: 12/15/18 Status post thrombolytic therapy with significant decrease in thrombotic load the right main pulmonary artery with significant symptomatic improvement both subjective (decrease's of breath) and objective with decreased respiratory rate and oxygen requirements. Patient is doing well. Recommend anticoagulation for life given numerous prior thromboembolic events. Patient currently has lost her insurance and will require conversion to Coumadin, but once she regains her insurance, Eliquis is a good option for her.
[2018-12-15 14:05] LABS: INR 1.1 (0.87-1.13)
[2018-12-15 18:21] LABS: Basophils % (Auto) 0.5 % (0.0-1.8); Eosinophils % (Auto) 0.5 % (0.0-4.3); Hematocrit 33.7 % (30.3-42.9); Hemoglobin 10.6 gm/dl (10.1-14.3); Lymphocytes # (Auto) 1.8 K/mm3 (1.2-5.4); Mean Corpuscular HGB Conc 31 % (30-34); Mean Corpuscular Volume 76 fl (79-97); Monocytes # (Auto) 0.2 K/mm3 (0.0-0.8); Monocytes % (Auto) 4.4 % (0.0-7.3); Platelet Count 117 K/mm3 (140-440); Red Blood Count 4.41 M/mm3 (3.65-5.03)
[2018-12-16] MEDS: diphenhydrAMINE 50 MG/ML VIAL IV PRN (02:05)
[2018-12-16 05:00] LABS: Hematocrit 29.4 % (30.3-42.9); Hemoglobin 9.4 gm/dl (10.1-14.3)
[2018-12-16 05:33] LABS: BUN/Creatinine Ratio 17; Blood Urea Nitrogen 12 mg/dL (7-17); Calcium 10.3 mg/dL (8.4-10.2); Hemolysis Index 3
[2018-12-16] MEDS: HEPARIN/ 0.45% NACL DRIP 25,000 UNIT/500 ML BAG IV SCH (11:15)
--- NOTE | 2018-12-16 11:51 | Progress Note ---
Assessment and Plan Assessment and plan: 48-year-old woman who presented to the hospital with shortness of breath, history of PE and DVT in 2017, had completed anticoagulants and was only on low- dose aspirin. Patient was found to have submassive PE, status post [employer] catheter in the right lower lobe to the right main pulmonary artery on 12/15, and status post successful removal on the same day Vascular surgery input appreciated, they recommend lifelong anticoagulation -We will monitor for another day, tentative discharge tomorrow on oral anticoagulants, start eliquis Diagnosis Submassive PE, Critical care time 35 minutes History Interval history: Review of systems Constitutional: No fevers, no malaise, no joint pains CVS: No chest pain, no orthopnea, no pedal edema GI: No abdominal pain, no diarrhea, no vomiting, no constipation Respiratory: No shortness of breath, no wheezing, no coughing Hospitalist Physical - Physical exam Narrative exam: General.: Appears well, no distress, nontoxic HEENT: Moist mucous membranes, extraocular muscles intact, no lymphadenopathy Neck: supple Cardiac: S1-S2 heard Lungs: clear to auscultation bilaterally Abdomen: soft , nontender, nondistended, bowel sounds positive Extremities: no edema clubbing or cyanosis Skin: no rash or lesions Neurologic: no gross focal deficits Psych: calm, and cooperative - Constitutional Vitals: Temp Pulse Resp BP Pulse Ox 98.4 F 89 23 125/68 100 12/16/18 08:00 12/16/18 11:00 12/16/18 11:00 12/16/18 11:00 12/16/18 11:00 General appearance: Present: no acute distress, obese Results - Labs CBC & Chem 7: 12/16/18 03:55 12/16/18 03:55 Labs: Laboratory Last Values WBC 5.7 K/mm3 (4.5-11.0) 12/15/18 17:53 RBC 4.41 M/mm3 (3.65-5.03) 12/15/18 17:53 Hgb 9.4 gm/dl (10.1-14.3) L 12/16/18 03:55 Hct 29.4 % (30.3-42.9) L 12/16/18 03:55 MCV 76 fl (79-97) L 12/15/18 17:53 MCH 24 pg (28-32) L 12/15/18 17:53 MCHC 31 % (30-34) 12/15/18 17:53 RDW 17.0 % (13.2-15.2) H 12/15/18 17:53 Plt Count 97 K/mm3 (140-440) L 12/16/18 03:55 Lymph % (Auto) 31.0 % (13.4-35.0) 12/15/18 17:53 [place] % (Auto) 4.4 % (0.0-7.3) 12/15/18 17:53 Eos % (Auto) 0.5 % (0.0-4.3) 12/15/18 17:53 Baso % (Auto) 0.5 % (0.0-1.8) 12/15/18 17:53 Lymph # 1.8 K/mm3 (1.2-5.4) 12/15/18 17:53 [place] # 0.2 K/mm3 (0.0-0.8) 12/15/18 17:53 Eos # 0.0 K/mm3 (0.0-0.4) 12/15/18 17:53 Baso # 0.0 K/mm3 (0.0-0.1) 12/15/18 17:53 Add Manual Diff Complete 12/15/18 00:35 Seg Neutrophils % 63.6 % (40.0-70.0) 12/15/18 17:53 Seg Neutrophils # 3.7 K/mm3 (1.8-7.7) 12/15/18 17:53 PT 14.1 Sec. (12.2-14.9) 12/15/18 11:30 INR 1.10 (0.87-1.13) 12/15/18 11:30 APTT 35.0 Sec. (24.2-36.6) 12/15/18 11:30 Fibrinogen 254 mg/dl (211-480) 12/15/18 11:31 D-Dimer 3833.94 ng/mlDDU (0-234) H 12/14/18 20:37 Heparin Anti-Xa Level 0.25 U.I./ml (0.3-0.7) L 12/16/18 05:50 Sodium 141 mmol/L (137-145) 12/16/18 03:55 Potassium 4.1 mmol/L (3.6-5.0) 12/16/18 03:55 Chloride 107.7 mmol/L (98-107) H 12/16/18 03:55 Carbon Dioxide 24 mmol/L (22-30) 12/16/18 03:55 Anion Gap 13 mmol/L 12/16/18 03:55 BUN 12 mg/dL (7-17) 12/16/18 03:55 Creatinine 0.7 mg/dL (0.7-1.2) 12/16/18 03:55 Estimated GFR > 60 ml/min 12/16/18 03:55 BUN/Creatinine Ratio 17 % 12/16/18 03:55 Glucose 101 mg/dL (65-100) H 12/16/18 03:55 Calcium 10.3 mg/dL (8.4-10.2) H 12/16/18 03:55 Total Bilirubin 0.20 mg/dL (0.1-1.2) 12/14/18 20:37 AST 14 units/L (5-40) 12/14/18 20:37 ALT 16 units/L (7-56) 12/14/18 20:37 Alkaline Phosphatase 85 units/L (35-129) 12/14/18 20:37 Troponin T < 0.010 ng/mL (0.00-0.029) 12/14/18 20:37 NT-Pro-B Natriuret Pep 167.0 pg/mL (0-450) 12/14/18 20:37 Total Protein 7.5 g/dL (6.3-8.2) 12/14/18 20:37 Albumin 4.4 g/dL (3.9-5) 12/14/18 20:37 Albumin/Globulin Ratio 1.4 % 12/14/18 20:37 HCG, Qual Negative (Negative) 12/14/18 20:37 Active Medications - Current Medications Current Medications: Generic Name Dose Route Start Last Admin Trade Name Freq PRN Reason Stop Dose Admin Acetaminophen 650 mg 12/14/18 23:[address] Q4H PRN Fever >101 Acetaminophen/Hydrocodone Bitart 2 each 12/15/18 00:00 12/15/18 10:55 [place] 5/325 PO 2 each Q6H PRN Administration Pain, Moderate (4-6) Diphenhydramine HCl 25 mg 12/15/18 02:37 12/16/18 02:05 Benadryl IV 25 mg QHS PRN Administration sleep Heparin Sodium/Sodium Chloride 25,000 unit in 500 mls @ 30 mls/hr 12/15/18 13:00 12/16/18 11:15 Heparin/ 0.45% Nacl-25,000 Unit/500 Ml IV 1,100 units/hr TITR PEDRO 22 mls/hr Administration Protocol 1,500 UNITS/HR Morphine Sulfate 4 mg 12/15/18 00:00 12/16/18 02:04 Morphine IV 4 mg Q4H PRN Administration Pain , Severe (7-10) Morphine Sulfate 2 mg 12/15/18 00:00 Morphine IV Q4H PRN Pain, Moderate (4-6) Ondansetron HCl 4 mg 12/15/18 00:00 Zofran IV Q8H PRN Nausea And Vomiting
[2018-12-16] MEDS: APIXABAN 5 MG TAB PO SCH ×2 (16:52→22:28)
[2018-12-17 05:17] LABS: Hematocrit 31.1 % (30.3-42.9); Hemoglobin 9.8 gm/dl (10.1-14.3)
[2018-12-17 05:24] LABS: BUN/Creatinine Ratio 14; Blood Urea Nitrogen 10 mg/dL (7-17); Hemolysis Index 2
[2018-12-17] MEDS: APIXABAN 5 MG TAB PO SCH (09:24)
--- NOTE | 2018-12-17 10:06 | Discharge Summary ---
Providers - Providers Date of Admission: 12/14/18 23:43 Attending physician: LINN FAGAN MD 12/14/18 22:57 Consult to Physician [CONS] Stat Comment: Dr. Reynolds spoke with Dr. Canales @ [id number] Consulting Provider: AYSE CANALES Physician Instructions: Reason For Exam: right main pulmonary artery embolism Primary care physician: ACTIVITY LEADER Hospitalization Condition: Stable Hospital course: 48-year-old woman who presented to the hospital with shortness of breath, history of PE and DVT in 2017, had completed anticoagulants and was only on low- dose aspirin. Patient was found to have submassive PE, status post [employer] catheter in the right lower lobe to the right main pulmonary artery on 12/15, and status post successful removal on the same day Vascular surgery input appreciated, they recommend lifelong anticoagulation She was transitioned from IV heparin drip to place which she tolerated well. She is being discharged on lifelong anticoagulation, she is going on Eliquis -Preventative health counseling performed for 17 minutes Diagnosis Submassive PE, History of multiple DVTs and PE Disposition: DC-01 TO HOME OR SELFCARE Time spent for discharge: 33 mins Core Measure Documentation - Palliative Care Palliative Care/ Comfort Measures: Not Applicable - Core Measures Any of the following diagnoses?: DVT/PE - VTE Discharge Requirements Deep Vein Thrombosis/Pulmonary Embolism Present on Admission: Yes Has pt received <5 days of overlap therapy or INR<2.0: No Anticoagulant overlap therapy prescribed at discharge: No Contraindication No Overlap Therapy order at DC: Not Indicated Exam - Constitutional Vitals: Temp Pulse Resp BP Pulse Ox 98.4 F 92 H 18 119/66 100 12/16/18 23:13 12/17/18 05:15 12/17/18 05:15 12/17/18 05:15 12/17/18 09:07 General appearance: Present: no acute distress, well-nourished - EENT Eyes: Present: PERRL ENT: hearing intact, clear oral mucosa - Neck Neck: Present: supple, normal ROM - Respiratory Respiratory effort: normal Respiratory: bilateral: CTA - Cardiovascular Heart Sounds: Present: S1 & S2. Absent: rub, click - Extremities Extremities: pulses symmetrical, No edema Peripheral Pulses: within normal limits - Abdominal General gastrointestinal: Present: soft, non-tender, non-distended, normal bowel sounds Female genitourinary: Present: normal - Integumentary Integumentary: Present: clear, warm, dry - Musculoskeletal Musculoskeletal: gait normal, strength equal bilaterally - Psychiatric Psychiatric: appropriate mood/affect, intact judgment & insight - Neurologic Neurologic: CNII-XII intact, moves all extremities Plan Follow up with: PRIMARY CARE, [Primary Care Provider] - 3-5 Days Forms: Work/School Release Form Prescriptions: Apixaban [Eliquis] 5 mg PO BID 30 Days tablet HYDROcodone/APAP 5-325 [[place] 5-325 mg TAB] 2 each PO Q6H PRN #14 tablet PRN Reason: Pain, Moderate (4-6)
[2018-12-17 12:19] VITALS: BP 125/77
[2018-12-23] MEDS ORDERED: APIXABAN 5 MG TAB PO SCH (10:00)
== END 2018-12-17 17:34 | disposition home or self-care (01) | DRG 175 ==
LOC: ED 20:05 → CC1 23:43 → 3A 12-16 18:26
PROVIDERS: ADMIT Internal Medicine; ATTEND Internal Medicine
PROC: 3E06317 Introduction of Other Thrombolytic into Central Artery, Percutaneous Approach (ICD-10-PCS; principal; 2018-12-15)
PROC: 02HQ33Z Insertion of Infusion Device into Right Pulmonary Artery, Percutaneous Approach (ICD-10-PCS; 2018-12-15)
PROC: B54BZZA Ultrasonography of Right Lower Extremity Veins, Guidance (ICD-10-PCS; 2018-12-15)
PROC: B31S1ZZ Fluoroscopy of Right Pulmonary Artery using Low Osmolar Contrast (ICD-10-PCS; 2018-12-15)
PROC: B31S1ZZ Fluoroscopy of Right Pulmonary Artery using Low Osmolar Contrast (ICD-10-PCS; 2018-12-15)
PROC: B51B1ZZ Fluoroscopy of Right Lower Extremity Veins using Low Osmolar Contrast (ICD-10-PCS; 2018-12-15)
PROC: 02PY33Z Removal of Infusion Device from Great Vessel, Percutaneous Approach (ICD-10-PCS; 2018-12-15)
DX: I26.99 Other pulmonary embolism without acute cor pulmonale (principal); I50.31 Acute diastolic (congestive) heart failure; Z68.41 Body mass index [BMI] 40.0-44.9, adult; I82.402 Acute embolism and thrombosis of unspecified deep veins of left lower extremity; E66.01 Morbid (severe) obesity due to excess calories; Z86.718 Personal history of other venous thrombosis and embolism; Z79.01 Long term (current) use of anticoagulants; Z91.14 Patient's other noncompliance with medication regimen; Z79.899 Other long term (current) drug therapy; Z90.49 Acquired absence of other specified parts of digestive tract
CPT/HCPCS: 36415; 37211; 37214; 71275; 75741; 76937; 80048; 80053; 83880; 84484; 84703; 85014; 85018; 85025; 85049; 85379; 85384; 85520; 85610; 85730; 93005; 93010; G0378; C1751; C1757; C1769; C1894; J0690; J1200; J1644; J2250; J2270; J2997; J3010; J7030; J7040; Q9967